=== PATIENT | female | born 2000 | race Two or more races ===

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

== ENCOUNTER 2020-06-01 14:18 | Emergency (ER) | payer OTHER, SELFPAY ==
[~2020-06-01] VITALS: Ht 152.4 cm; Wt 61.4 kg
[2020-06-01 14:58] VITALS: BP 114/87
== END 2020-06-01 15:03 | disposition home or self-care (01) ==
LOC: ER 14:18
DX: U07.1 COVID-19 (principal); F12.90 Cannabis use, unspecified, uncomplicated
CPT/HCPCS: 36415; 87635; 99281; 99283